=== PATIENT | female | born 1970 | race Asian ===

== ENCOUNTER 2017-11-07 08:13 | Emergency (ER) | payer BC ==
[~2017-11-07] VITALS: Ht 160 cm; Wt 64.4 kg
[2017-11-07 08:24] VITALS: Ht 160 cm; Wt 64.4 kg
[2017-11-07 08:45] LABS: BASOPHIL % 0.5 % (0-2); PLATELET COUNT 258 x10^3mcL (130-400); RED CELL DISTRIBUTION WIDTH 14.5 % (11.5-14.5)
[2017-11-07 08:56] LABS: CALCIUM 8.9 mg/dL (8.5-10.1); CARBON DIOXIDE 24.9 mmol/L (21-32); CHLORIDE SERUM 103 mmol/L (98-107); CREATININE SERUM 0.7 mg/dL (0.6-1.0); GFR1 > 60 mL/min; GLUCOSE SERUM 85 mg/dL (74-106); POTASSIUM SERUM 3.4 mmol/L (3.5-5.1); SODIUM SERUM 139 mmol/L (136-145)
[2017-11-07 11:37] VITALS: BP 123/71
== END 2017-11-07 11:37 | disposition home or self-care (01) ==
LOC: ED 08:13
PROVIDERS: Emergency Medicine
DX: R07.89 Other chest pain (principal)
CPT/HCPCS: J1885; J2060; J7030; Q0092